=== PATIENT | female | born 1960 | race Caucasian/White ===

== ENCOUNTER 2018-11-05 07:29 | Day surgery (SDC) | payer OTHER ==
[~2018-11-05] VITALS: Ht 167.6 cm; Wt 72.6 kg
[~2018-11-05 07:29] MED LIST: CEPHALEXIN500 MG PO; EXCEDRIN MIGRA1 EAC2 PO
--- NOTE | 2018-11-05 09:34 | NUR ---
11/05/18 0934 Viji Gerber 0853 PT TO PACU SLEEPY BUT AROUSABLE DENIES PAIN OR NAUSEA O2 ON 2L NC
--- NOTE | 2018-11-06 18:55 | OR ---
[facility] [address], [place] [address] Signed DATE OF OPERATION: 11/05/2018 SURGEON: Donta Quintero MD PREOPERATIVE DIAGNOSIS: Colon screening. POSTOPERATIVE DIAGNOSES: Normal colon to cecum and normal ileum. PROCEDURE PERFORMED: Total colonoscopy to cecum with intubation of ileum. ANESTHESIA: Intravenous sedation, fentanyl 150 mcg, Versed 6 mg. INDICATION: This 58-year-old white woman is a patient of Dr. Sifuentes. She has never had colonoscopy in the past and was referred for screening colonoscopy. She has no family history of colon cancer. She has no symptoms of bleeding, diarrhea, or constipation. She is admitted for screening colonoscopy. She understands the risks of bleeding, infection, and perforation. FINDINGS: The prep was excellent. Complete colonoscopy was undertaken to the cecum. Intubation of the ileum was accomplished as well. All areas of the bowel appeared normal. There were no polyps, diverticular formation, colitis, or cancer. DESCRIPTION OF PROCEDURE: The patient was brought to the endoscopy suite and placed in lateral decubitus position, given intravenous sedation to a point of slurred speech and nystagmus. Digital rectal examination was normal. An Olympus videocolonoscope was passed in the rectum and manipulated throughout the colon ultimately intubating the cecum itself. The ileocecal valve and appendiceal orifice were normal. The scope was passed into the ilium without much problem. The ileal mucosa was normal as well. The scope was carefully withdrawn and examination throughout showed no sign of abnormality. Retroflexed view of the rectum was normal as well. The scope was removed the patient taken to recovery room in good condition concluding diagnosis normal colon and rectum. Electronically Signed By: DONTA QUINTERO MD 11/06/18 3165 PATIENT NAME: MAC WINSTON OPERATIVE REPORT DATE OF : 56 REPORT #: [id number] PHYSICIAN: DONTA QUINTERO MD PCP: COLBY SIFUENTES DO REPORT IS CONFIDENTIAL AND NOT TO BE RELEASED WITHOUT AUTHORIZATION [address], [place] [address] Signed PLAN: Repeat colonoscopy in 10 years, sooner if symptoms should occur. She will return to the ongoing care of Dr. Sifuentes. MD MARI Velazquez/MODL /[id number] cc: Colby Sifuentes DO Copies: COLBY SIFUENTES DO ~ Electronically Signed By: DONTA QUINTERO MD 11/06/18 1855 PATIENT NAME: MAC WINSTON OPERATIVE REPORT DATE OF : 56 REPORT #: [id number] PHYSICIAN: DONTA QUINTERO MD PCP: COLBY SIFUENTES DO REPORT IS CONFIDENTIAL AND NOT TO BE RELEASED WITHOUT AUTHORIZATION
== END 2018-11-05 09:54 | disposition home or self-care (01) ==
LOC: OPS 07:29 → DS 07:29 → OPS 08:30 → DS 08:30 → OPS 09:54
PROVIDERS: Surgery
PROC: 0DJD8ZZ Inspection of Lower Intestinal Tract, Via Natural or Artificial Opening Endoscopic (ICD-10-PCS; principal; 2018-11-05 08:30)
DX: Z12.11 Encounter for screening for malignant neoplasm of colon (principal); I10 Essential (primary) hypertension
CPT/HCPCS: 99153; G0500; J2250; J3010; J7120